=== PATIENT | male | born 1965 | race African-American/Black ===

== ENCOUNTER 2021-09-05 20:12 | Emergency (ER) | payer OTHER ==
[2021-09-05 22:02] LABS: #Eosinphils 0.2 10x3/uL (0.0-0.5); #Monocytes 0.6 10x3/uL (0.0-1.1); #Neutrophils 5.6 10x3/uL (1.5-8.4); %Basophils 0.3 % (0.0-2.0); %Eosinophils 1.7 % (0.0-6.0); %Monocytes 5.9 % (0.0-10.0); %Neutrophils 55.6 % (40.0-75.0); Hemoglobin 14.3 g/dL (13.5-17.5); Mean Corpuscular HGB CONC 33.3 g/dL (32.0-36.0); Mean Corpuscular Hemoglobin 30.4 pg (27.0-33.0); Mean Corpuscular Volume 91.5 fl (81.2-95.1); Mean Platelet Volume 10.4 fl (7.4-10.4); Platelet Count 379 10x3/uL (150-450); White Blood Cell (WBC) Count 10.1 10x3/uL (3.5-10.5)
[2021-09-05 22:18] LABS: ALT (SGPT) 28 U/L (8-55); AST (SGOT) 18 U/L (5-34); Albumin 3.8 g/dL (3.5-5.0); Alkaline Phosphatase 69 U/L (40-110); Anion Gap 14 mmol/L (10-20); BUN (Urea Nitrogen) 19 mg/dL (8.4-25.7); Bilirubin, Total 0.4 mg/dL (0.2-1.2); CK (CPK) 420 U/L (30-200); Calc. Creatinine Clearance 0 mL/min (70-130); Calcium 9.1 mg/dL (7.8-10.44); Carbon Dioxide 24 mmol/L (22-29); Chloride 105 mmol/L (98-107); Globulin 3.2 g/dL (2.4-3.5); Glucose 219 mg/dL (70-105); Potassium 3.9 mmol/L (3.5-5.1); Sodium 139 mmol/L (136-145)
[2021-09-05] MEDS ORDERED: Piperacillin/Tazobactam 3.375 GM VIAL ONE (22:35)
[2021-09-05] MEDS ORDERED: VANCOMYCIN 2 GRAM/400 ML BAG 2 GM in Premix Bag 1 BAG IVPB SCH (22:45)
== END 2021-09-06 01:21 | disposition home or self-care (01) ==
LOC: CSHERS 20:12
DX: L03.115 Cellulitis of right lower limb (principal); E11.9 Type 2 diabetes mellitus without complications; I10 Essential (primary) hypertension; I25.2 Old myocardial infarction; Z79.4 Long term (current) use of insulin; Z79.84 Long term (current) use of oral hypoglycemic drugs; Z79.899 Other long term (current) drug therapy
CPT/HCPCS: 36415; 80053; 82550; 83605; 83880; 85025; 87040; 96365; 96366; 96367; J2543; J3370